=== PATIENT | female | born 1965 | race American Indian/Alaskan Native ===

== ENCOUNTER 2018-12-22 10:35 | Day surgery (SDC) | payer OTHER ==
[~2018-12-22 10:35] MED LIST: NACL 0.9% 1000 ML 1,000 ML IV SCH
[2018-12-22] MEDS ORDERED: VERSED IV ONE (12:58)
[2018-12-22] MEDS ORDERED: DIPRIVAN 10 MG/ML IV ONE ×2 (12:58→13:10)
[2018-12-22] MEDS ORDERED: LOPRESSOR IV ONE ×2 (13:00→13:30)
--- NOTE | 2018-12-22 13:24 | Procedure Note ---
Date of procedure: 12/22/18 Pre-op diagnosis: Diarrhea/ Colitis Post-op diagnosis: other (Mild Proctitis/ R/O Microscopic Colitis/ R/O Ileitis/Solitary,Descending Colon Polyp (removed by cold snare polyppectomy and retrieved)/ Solitary,Small Descending Colon polyp) Procedure: Colonoscopy with cold Snare Polypectomy and Cold Biopsy Anesthesia: [facility] [place] Surgeon: MOISÉS GARCIA Estimated blood loss: minimal Pathology: list Specimen disposition: to lab Condition: stable Disposition: same day (OTC Imodium AD prn for diarrhea. Avoid aspirin NSAID and anticoagulants for 5 days and follow up in 1 to 2 weeks ([phone]).)
[2018-12-22] MEDS ORDERED: XYLOCAINE MPF 2% ONE (13:30)
[2018-12-22 14:19] VITALS: BP 121/70
--- NOTE | 2018-12-22 15:30 | Anesthesia Day of Surgery ---
Anesthesia Day of Surgery - Day of Surgery Patient Examined: Yes Patient H&P Reviewed: Yes Patient is NPO: Yes Beta Blockers: Yes
--- NOTE | 2018-12-22 15:31 | Anesthesia Consultation ---
Anesthesia Consult and Med Hx Date of service: 12/22/18 - Airway Anesthetic Teeth Evaluation: Good ROM Head & Neck: Adequate Mental/Hyoid Distance: Adequate Mallampati Class: Class III Intubation Access Assessment: Good - Pulmonary Exam CTA: Yes - Cardiac Exam Cardiac Exam: No Murmur - Pre-Operative Health Status ASA Pre-Surgery Classification: ASA3 Proposed Anesthetic Plan: MAC - Pulmonary Hx Sleep Apnea: Yes - Cardiovascular System Hx Cardia Arrhythmia: Yes - Central Nervous System Hx Psychiatric Problems: Yes - Other Systems Hx Obesity: Yes
--- NOTE | 2018-12-22 18:18 | Operative Report ---
INDICATIONS: A 53-year-old -[place] female who has a family history of cancer and lately has been having diarrhea. Colonoscopy was done to assess for the problem. DESCRIPTION OF PROCEDURE: The procedure was done after getting informed consent with MAC anesthesia. Initial rectal exam was unremarkable. Instrument was passed through the rectum onto the cecum, which was identified by the ileocecal valve and the appendiceal orifice. Visualization was fair to good. Terminal ileum was intubated, showed normal mucosa. Biopsy was done to rule out for possible ileitis. Cecum, ascending colon, and transverse colon showed normal mucosa. Random biopsies were done to rule out for possible microscopic colitis as well as from the left colon, there was a solitary small descending colon diverticula noted as well as a 10 mm descending colon polyp noted in the proximal descending colon that was removed by cold snare excision and retrieved and the rectum showed signs suggestive of possible mild proctitis. Biopsy was done from the rectum as well. ASSESSMENT: Diarrhea, possible mild proctitis, rule out microscopic colitis, rule out ileitis, solitary descending colon polyp removed by cold snare excision and retrieved minor left colon diverticula. Plan is to have the patient avoid aspirin and aspirin-related products for the next few days and to treat the patient with [id number] Imodium A-D for now. Followup the patient in the office in 1-2 weeks' time. Further treatment adjustments will be according to the biopsy findings. There is minimal bleeding from the biopsy and the polypectomy site and no complications associated with the procedure. Procedure was done in the GI lab in the presence and with the assistance of katie Kumar as well as the assistance of anesthesia. JOB# [id number] RENÉ/WANDA
== END 2018-12-22 10:36 | disposition home or self-care (01) ==
LOC: GIO 10:35
DX: D12.4 Benign neoplasm of descending colon (principal); K57.30 Diverticulosis of large intestine without perforation or abscess without bleeding; K63.89 Other specified diseases of intestine; K62.89 Other specified diseases of anus and rectum; I42.9 Cardiomyopathy, unspecified; G47.30 Sleep apnea, unspecified; E66.9 Obesity, unspecified; K21.9 Gastro-esophageal reflux disease without esophagitis; Z90.710 Acquired absence of both cervix and uterus; Z87.891 Personal history of nicotine dependence; Z79.899 Other long term (current) drug therapy; Z68.41 Body mass index [BMI] 40.0-44.9, adult; Z98.890 Other specified postprocedural states; Z98.891 History of uterine scar from previous surgery
CPT/HCPCS: 45380; 45385; 88305; J2250; J2704; J7030